=== PATIENT | male | born 1990 | race Hispanic/Latino ===

== ENCOUNTER 2018-07-01 16:56 | Emergency (ER) | payer BC ==
[2018-07-01 17:04] VITALS: BP 160/60; PULSE 78; RESP 20; TEMP 98.1; O2SAT 98
[2018-07-01] MEDS ORDERED: Tdap Vaccine 0.5 ml Vial (10-64 yrs) IM ONE ×2 (17:12→18:34)
--- NOTE | 2018-07-01 17:20 | ED PDOC ---
Lower Extremity Pain/Injury Time Seen by Provider: 07/01/18 17:07 Chief Complaint (Nursing): Lower Extremity Problem/Injury Chief Complaint (Provider): right foot pain History Per: Patient History/Exam Limitations: no limitations Onset/Duration Of Symptoms: Days (1) Current Symptoms Are (Timing): Still Present Additional History Per: Patient Additional Complaint(s): 28yo male, otherwise well, comes to ER reporting pain to his right foot after he stepped on a sea urchin. Patient states he was vacationing in [place], when he stepped on a sea urchin barefoot; patient states he [place] clinic and given Tylenol #3, which he has been taking with transient relief. Otherwise, no fever, chills, weakness, numbness or tingling. PMD: Dr. Feng Past Medical History Reviewed: Historical Data, Nursing Documentation, Vital Signs Vital Signs: Last Vital Signs Temp 98.1 F 07/01/18 17:00 Pulse 78 07/01/18 17:00 Resp 20 07/01/18 17:00 BP 160/60 H 07/01/18 17:00 Pulse Ox 98 07/01/18 17:00 - Medical History PMH: No Chronic Diseases - Surgical History Surgical History: No Surg Hx - Family History Family History: States: No Known Family Hx - Home Medications Home Medications: Ambulatory Orders Medication Instructions Recorded Amoxicillin/Clavulanate [Augmentin 1 tab PO BID #20 tab 07/01/18 875 MG-125 MG] - Allergies Allergies/Adverse Reactions: Allergies Allergy/AdvReac Type Severity Reaction Status Date / Time No Known Allergies Allergy Verified 07/01/18 17:00 Review of Systems ROS Statement: Except As Marked, All Systems Reviewed And Found Negative Constitutional: Negative for: Fever, Chills Musculoskeletal: Positive for: Foot Pain (right) Neurological: Negative for: Weakness, Numbness Physical Exam - Reviewed Nursing Documentation Reviewed: Yes Vital Signs Reviewed: Yes - Physical Exam Appears: Positive for: Non-toxic, No Acute Distress Head Exam: Positive for: ATRAUMATIC, NORMAL INSPECTION, NORMOCEPHALIC Skin: Positive for: Normal Color Eye Exam: Positive for: Normal appearance Neck: Positive for: Supple Respiratory: Negative for: Respiratory Distress Pulses-Dorsalis Pedis (L): 2+ Pulses-Dorsalis Pedis (R): 2+ Extremity: Positive for: Normal ROM, Capillary Refill (< 2 seconds), Other (multiple linear foreign bodies palpated on plantar surface of right foot). Negative for: Deformity Neurologic/Psych: Positive for: Alert, Oriented. Negative for: Motor/Sensory Deficits - ECG O2 Sat by Pulse Oximetry: 98 (RA) Pulse Ox Interpretation: Normal Medical Decision Making Medical Decision Making: Impression: Multiple foreign bodies noted to plantar aspect of right foot Plan: -- Podiatry consult -- XR Right foot -- Adacel 0.5ml IM 1722 Podiatry resident Jacinta to evaluate patient at bedside. [address] Feng, who recommends to consult Dr. Cisneros for podiatry consult. 1730 XR FINDINGS: BONES: Normal. No fracture. JOINTS: Normal. SOFT TISSUES: Normal. OTHER FINDINGS: None. IMPRESSION: Normal right foot radiographs.No visualized radiopaque foreign body. 1808 Per podiatry, unsuccessful in removing foreign body. Podiatry resident spoke wit Dr. Cisneros, who is recommending Augmentin 875mg for 10 days and to follow up in his office this week. Plan of care discussed with patient, and is agreeable. Stable for discharge home. Crutches provided. Augmentin PO ordered. Scribe Attestation: Documented by Niya Pereira, acting as a scribe for ANGIE Becerra Provider Scribe Attestation: All medical record entries made by the Scribe were at my direction and personally dictated by me. I have reviewed the chart and agree that the record accurately reflects my personal performance of the history, physical exam, medical decision making, and the department course for this patient. I have also personally directed, reviewed, and agree with the discharge instructions and disposition. Disposition - Clinical Impression Clinical Impression: Foreign body in foot - Patient ED Disposition Is Patient to be Admitted: No - Disposition Referrals: Van Cisneros DPM [Staff Provider] - Disposition: Routine/Home Disposition Time: 18:08 Condition: STABLE Additional Instructions: FOLLOW UP WITH DR. CISNEROS (COMMODITY MANAGEMENT SPECIALIST) TOMORROW WITHOUT FAIL RETURN TO ED IMMEDIATELY IF SYMPTOMS WORSEN JORGE SHEIKH, thank you for letting us take care of you today. Your provider was María Wilson MD and you were treated for RT FOOT PAIN. The emergency medical care you received today was directed at your acute symptoms. If you were prescribed any medication, please fill it and take as directed. It may take several days for your symptoms to resolve. Return to the Emergency Department if your symptoms worsen, do not improve, or if you have any other problems. Please contact your doctor or call one of the physicians/clinics you have been referred to that are listed on the Patient Visit Information form that is included in your discharge packet. Bring any paperwork you were given at discharge with you along with any medications you are taking to your follow up visit. Our treatment cannot replace ongoing medical care by a primary care provider outside of the emergency department. Thank you for allowing the [facility] team to be part of your care today. If you had an X-Ray or CT scan: A Radiologist will review the ED reading if any change in treatment is needed we will contact you. If you had a blood, urine, or wound culture: It will take several days for the results, if any change in treatment is needed we will contact you. If you had an STI test: It will take 48 hours for the results. Please call after 1 week if you have not heard back. Prescriptions: Amoxicillin/Clavulanate [Augmentin 875 MG-125 MG] 1 tab PO BID #20 tab Instructions: Foreign Body in Skin (DC) Forms: [facility] (Lithuanian), [facility] ED School/Work Excuse
--- NOTE | 2018-07-01 18:07 | RAD ---
Date of service: 07/01/2018 PROCEDURE: Right Foot Radiographs. HISTORY: foreign body COMPARISON: None. FINDINGS: BONES: Normal. No fracture. JOINTS: Normal. SOFT TISSUES: Normal. OTHER FINDINGS: None. IMPRESSION: Normal right foot radiographs.No visualized radiopaque foreign body.
[2018-07-01] MEDS ORDERED: Amoxicillin-Clav 875-125 mg Tab PO STA (18:18)
[2018-07-01] MEDS ORDERED: Amoxicillin-Clav 875-125 mg Tab PO ONE (18:34)
--- NOTE | 2018-07-02 14:50 | CP.PCM.CON ---
History of Present Illness - History of Present Illness History of Present Illness: Podiatry Consult Note: Dr. Cisneros 28 year old male patient, with no PMHx, seen and evaluated for R foot pain. Patient states that he was on vacation yesterday in [facility] when he stepped on a sea urchin. He immediately pulled out the long spines from his foot but states that they were so brittle that they broke off in his foot. He states that he was given pain medication at the airport. Currently, he has pain with ambulation. He denies any N/V/F/SOB/CP. PMHx: denies ALL: denies PMD: Dr. Feng Past Patient History - Past Social History Smoking Status: Never Smoked - PSYCHIATRIC Hx Substance Use: No - SURGICAL HISTORY Hx Surgeries: No Meds Home Medications: Home Medication List Medication Instructions Recorded Confirmed Type Amoxicillin/Clavulanate [Augmentin 1 tab PO BID #20 tab 07/01/18 Rx 875 MG-125 MG] Allergies/Adverse Reactions: Allergies Allergy/AdvReac Type Severity Reaction Status Date / Time No Known Allergies Allergy Verified 07/01/18 17:00 Physical Exam - Constitutional Appears: Non-toxic, No Acute Distress - Head Exam Head Exam: ATRAUMATIC, NORMOCEPHALIC - Extremities Exam Additional comments: Vascular: DP/PT 2/4, CFT < 3 seconds, TG warm to warm, mild edema appreciated to R plantar foot Ortho: Pain with palpation of R plantar foot, MMT 4/5 secondary to patient guarding Neuro: Gross and protective sensation intact Derm: Sea urchin spines appreciated embedded to plantar aspect of R foot, no erythema, no drainage, no purulence no clinical signs of infection - Neurological Exam Neurological exam: Alert, Oriented x3 - Psychiatric Exam Psychiatric exam: Normal Affect, Normal Mood Results - Vital Signs Recent Vital Signs: Last Vital Signs Temp 98.1 F 07/01/18 17:00 Pulse 78 07/01/18 17:00 Resp 20 07/01/18 17:00 BP 160/60 H 07/01/18 17:00 Pulse Ox 98 07/01/18 20:09 Assessment & Plan - Assessment and Plan (Free Text) Assessment: 28 year old male patient, with no PMHx, seen and evaluated for R plantar foot pain secondary to multiple retained sea urchin spines Plan: Patient seen and evaluated with all questions and concerns addressed Patient discussed in detail with Dr. Cisneros R foot x-rays taken; Normal R foot radiographs, no visualized radio Patient L foot washed with Chlorohexidine scrub Utilizing a pickup, long sea urchin spines were removed. Advised patient to perform vinegar soaks at home twice daily to help dissolve/re move remaining embedded sea urchin spines Rx Augmentin PO Instructed to follow up with Dr. Cisneros in office within one week Thank you for the consult - Date & Time Date: 07/02/18 Time: 15:32
== END 2018-07-01 18:44 | disposition home or self-care (01) ==
LOC: H.ER 16:56
DX: S90.859A Superficial foreign body, unspecified foot, initial encounter (principal); Z23 Encounter for immunization